=== PATIENT | male | born 1965 | race Caucasian/White ===

== ENCOUNTER 2018-02-24 11:40 | Observation (INO) ==
--- NOTE | 2018-02-24 12:48 | ED ---
HPI General Chief complaint: Weakness Stated complaint: Medical Complaint Time Seen by Provider: 02/24/18 12:34 History of Present Illness HPI narrative: Patient comes in the emergency department playing of left-sided chest tightness ongoing intermittently over the past 2 weeks. Patient with associated numbness and tingling in his left upper extremity, shortness of breath, and generalized weakness with this. Patient denies anything making it better or worse. Patient got concerned when it became more constant today. Patient reports he has had some swelling of his feet has been going on intermittently for years but seem to be worse today. Denies anything making symptoms better or worse. Denies ever having a stress test. Denies any radiation of pain. Denies loss or change of bowel/bladder or fevers. Related Data Home Medications Medication Instructions Recorded Confirmed No Known Home Medications 02/24/18 02/24/18 Allergies Allergy/AdvReac Type Severity Reaction Status Date / Time No Known Allergies Allergy Mild Uncoded 10/23/07 22:37 Review of Systems Except as stated in HPI: all other systems reviewed are negative [facility] Social History Social History Substance History: No History of Abuse Second Hand Smoke Exposure: Yes Smoking Status: Current every day smoker Tobacco Type: Cigarettes Packs Per Day: 1 Cigarettes Per Day: 20.0 Years Smoked: 40 Pack-Years: 40.00 How Often Do You Have a Drink Containing Alcohol: 4 or more times a week (2-4 beers nightly) Hx Recent Travel: No Recent Travel in [facility] within the Last 8 Weeks: No Recent Out of Country Travel within the Last 8 Weeks: No Exam Narrative Exam Narrative: GENERAL: Well-developed, well nourished, in no acute distress, and non-ill appearing. SKIN: Focused skin assessment warm and dry. HEAD: Atraumatic. Normocephalic. EYES: Pupils equal and round. EOMI. No scleral icterus. No injection or drainage. ENT: No nasal bleeding or discharge. Mucous membranes pink and moist. NECK: Trachea midline. No JVD. Supple. No nuclear rigidity. CARDIOVASCULAR: Regular rate and rhythm. No murmur appreciated. RESPIRATORY: No accessory muscle use. No respiratory distress. Scant wheezing throughout. GASTROINTESTINAL: Abdomen soft, non-tender, nondistended, and no guarding. Hepatic and splenic margins not palpable. Normal bowel sounds x4. No pulsatile mass. MUSCULOSKELETAL: No obvious deformities. No clubbing. No cyanosis. Trace edema bilateral feet. Full range of motion. NEUROLOGICAL: Awake and alert. No obvious cranial nerve deficits. Motor grossly within normal limits. Normal speech. PSYCHIATRIC: Appropriate mood and affect; insight and judgment normal. Course Initial Documented Vital Signs Temperature 98.9 F 02/24/18 11:57 Pulse Rate 88 02/24/18 11:57 Respiratory Rate 17 02/24/18 11:57 Blood Pressure 159/94 H 02/24/18 11:57 Pulse Oximetry 97 02/24/18 11:57 Last Documented Vital Signs Temperature 98.3 F 02/24/18 20:00 Pulse Rate 71 02/24/18 20:00 Respiratory Rate 18 02/24/18 20:00 Blood Pressure 125/74 02/24/18 20:00 Pulse Oximetry 97 02/24/18 20:00 Medical Decision Making VASILE Attestation VASILE supervised visit: Yes Attestation: I, Dr. Lr, have reviewed the advance practice practitioner's documentation and am in agreement, met with the patient face to face, made the diagnosis, and the medical decision making was done by me. *My assessment and Findings: Chest pain, concerning for acute coronary syndrome in addition to pancreatitis. Patient is able to tolerate p.o. Thus he has been placed in the chest pain observation unit for serial troponins and likely stress test. MDM Narrative Medical decision making narrative: Patient was seen and examined. Initial laboratory radiological studies were ordered. IV was established patient placed on continuous cardiac monitoring. Patient was given 162 mg of aspirin and Nitropaste was placed. Patient was given a DuoNeb secondary to wheezing noted on exam. Upon review of his laboratory studies. CT scan was ordered showed a normal pancreas. I suspect patient's elevated lipase secondary to alcohol use. Patient reports symptoms improved status post Nitropaste, aspirin , and DuoNeb. Discussed all findings and plan of care with Dr. Lr, who is agreement plan of care and disposition. Discussed all findings and plan of care patient, who is agreeable for admission to the chest pain center for further treatment and evaluation. Patient remained stable throughout ED course. Differential Diagnosis Differential Diagnosis: Acute coronary syndrome, angina, metabolic source, pancreatitis, pneumonia, COPD exacerbation Lab Data Result diagrams: 02/24/18 13:10 02/24/18 13:10 Lab Results 02/24/18 02/24/18 02/24/18 Range/Units 13:10 13:10 13:10 WBC 8.3 (4.0-11.0) th/mm3 RBC 4.49 L (4.50-5.90) mil/mm3 Hgb 15.2 (13.0-17.0) gm/dL Hct 44.0 (39.0-51.0) % MCV 98.0 (80.0-100.0) fL MCH 33.8 (27.0-34.0) pg MCHC 34.5 (32.0-36.0) % RDW 14.3 (11.6-17.2) % Plt Count 177 (150-450) th/mm3 MPV 7.4 (7.0-11.0) fL Neut % (Auto) 82.8 H (16.0-70.0) % Lymph % (Auto) 10.1 (9.0-44.0) % [place] % (Auto) 6.2 (0.0-8.0) % Eos % (Auto) 0.2 (0.0-4.0) % Baso % (Auto) 0.7 (0.0-2.0) % Neut # (Auto) 6.9 (1.8-7.7) th/mm3 Lymph # (Auto) 0.8 L (1.0-4.8) th/mm3 [place] # (Auto) 0.5 (0.0-0.9) th/mm3 Eos # (Auto) 0.0 (0.0-0.4) th/mm3 Baso # (Auto) 0.1 (0.0-0.2) th/mm3 WBC Differential . Differential Comment Auto diff final PT Cancelled INR Cancelled APTT (24.3-30.1) sec Sodium 136 (136-145) meq/L Potassium 4.4 (3.5-5.1) meq/L Chloride 101 (98-107) meq/L Carbon Dioxide 26.4 (21.0-32.0) meq/L Anion Gap 9 (5-15) meq/L BUN 13 (7-18) mg/dL Creatinine 0.93 (0.60-1.30) mg/dL Estimated GFR 85 L (>89) mL/min Random Glucose 83 (74-106) mg/dL Calcium 9.3 (8.5-10.1) mg/dL Magnesium 2.3 (1.5-2.5) mg/dL Total Bilirubin 0.8 (0.2-1.0) mg/dL AST 31 (15-37) U/L ALT 30 (12-78) U/L Alkaline Phosphatase 59 (45-117) U/L Total Creatine Kinase 261 (39-308) U/L Troponin I Less than 0.02 L (0.02-0.05) ng/mL B-Natriuretic Peptide (0-100) pg/mL Total Protein 7.2 (6.4-8.2) g/dL Albumin 4.3 (3.4-5.0) g/dL Lipase (73-393) U/L 02/24/18 02/24/18 02/24/18 Range/Units 13:10 13:10 13:10 WBC (4.0-11.0) th/mm3 RBC (4.50-5.90) mil/mm3 Hgb (13.0-17.0) gm/dL Hct (39.0-51.0) % MCV (80.0-100.0) fL MCH (27.0-34.0) pg MCHC (32.0-36.0) % RDW (11.6-17.2) % Plt Count (150-450) th/mm3 MPV (7.0-11.0) fL Neut % (Auto) (16.0-70.0) % Lymph % (Auto) (9.0-44.0) % [place] % (Auto) (0.0-8.0) % Eos % (Auto) (0.0-4.0) % Baso % (Auto) (0.0-2.0) % Neut # (Auto) (1.8-7.7) th/mm3 Lymph # (Auto) (1.0-4.8) th/mm3 [place] # (Auto) (0.0-0.9) th/mm3 Eos # (Auto) (0.0-0.4) th/mm3 Baso # (Auto) (0.0-0.2) th/mm3 WBC Differential Differential Comment PT 10.7 INR 1.1 APTT 27.2 (24.3-30.1) sec Sodium (136-145) meq/L Potassium (3.5-5.1) meq/L Chloride (98-107) meq/L Carbon Dioxide (21.0-32.0) meq/L Anion Gap (5-15) meq/L BUN (7-18) mg/dL Creatinine (0.60-1.30) mg/dL Estimated GFR (>89) mL/min Random Glucose (74-106) mg/dL Calcium (8.5-10.1) mg/dL Magnesium (1.5-2.5) mg/dL Total Bilirubin (0.2-1.0) mg/dL AST (15-37) U/L ALT (12-78) U/L Alkaline Phosphatase (45-117) U/L Total Creatine Kinase (39-308) U/L Troponin I (0.02-0.05) ng/mL B-Natriuretic Peptide 16 (0-100) pg/mL Total Protein (6.4-8.2) g/dL Albumin (3.4-5.0) g/dL Lipase 714 H (73-393) U/L 02/24/18 Range/Units 17:00 WBC (4.0-11.0) th/mm3 RBC (4.50-5.90) mil/mm3 Hgb (13.0-17.0) gm/dL Hct (39.0-51.0) % MCV (80.0-100.0) fL MCH (27.0-34.0) pg MCHC (32.0-36.0) % RDW (11.6-17.2) % Plt Count (150-450) th/mm3 MPV (7.0-11.0) fL Neut % (Auto) (16.0-70.0) % Lymph % (Auto) (9.0-44.0) % [place] % (Auto) (0.0-8.0) % Eos % (Auto) (0.0-4.0) % Baso % (Auto) (0.0-2.0) % Neut # (Auto) (1.8-7.7) th/mm3 Lymph # (Auto) (1.0-4.8) th/mm3 [place] # (Auto) (0.0-0.9) th/mm3 Eos # (Auto) (0.0-0.4) th/mm3 Baso # (Auto) (0.0-0.2) th/mm3 WBC Differential Differential Comment PT INR APTT (24.3-30.1) sec Sodium (136-145) meq/L Potassium (3.5-5.1) meq/L Chloride (98-107) meq/L Carbon Dioxide (21.0-32.0) meq/L Anion Gap (5-15) meq/L BUN (7-18) mg/dL Creatinine (0.60-1.30) mg/dL Estimated GFR (>89) mL/min Random Glucose (74-106) mg/dL Calcium (8.5-10.1) mg/dL Magnesium (1.5-2.5) mg/dL Total Bilirubin (0.2-1.0) mg/dL AST (15-37) U/L ALT (12-78) U/L Alkaline Phosphatase (45-117) U/L Total Creatine Kinase 216 (39-308) U/L Troponin I Less than 0.02 L (0.02-0.05) ng/mL B-Natriuretic Peptide (0-100) pg/mL Total Protein (6.4-8.2) g/dL Albumin (3.4-5.0) g/dL Lipase (73-393) U/L Imaging Data Radiologist's impression: Chest X-Ray 02/24/18 12:42 CONCLUSION: No acute cardiopulmonary disease. Abdomen CT 02/24/18 14:15 CONCLUSION: 1. The visualized portions of bowel mesentery appear unremarkable. No oral contrast was given. 2. The gallbladder is unremarkable in appearance. 3. Mild hepatic steatosis. ECG Data Interpretation: EKG reviewed by Dr. Lr shows sinus rhythm with ventricular rate 76. No STEMI. Discharge Plan Discharge Disposition Patient Disposition: 30 Still Patient Discharge Condition Condition: Stable Discharge Details Diagnosis: Chest pain Physicians Team ED Provider: Alicia Lr ED Midlevel Provider: Alexis Mayorga Primary Care Provider: Primary Care Terry,Mariela Attending Provider: Livier Israel ED Status: Left Department Discharge Information Discharge Date/Time: 02/24/18 18:13
--- NOTE | 2018-02-24 13:38 | XR ---
EXAM DATE: 02/24/2018 1:31 PM EDT AGE/SEX: 52 years / Male INDICATIONS: . Chest pain. Shortness of breath. Bilateral lower extremity swelling. CLINICAL DATA: This is the patient's initial encounter. Patient reports that signs and symptoms have been present for 2 days and indicates a pain score of 8/10. MEDICAL/SURGICAL HISTORY: . Smoker. None. COMPARISON: No prior exams available for comparison. FINDINGS: PA and lateral views of the chest demonstrate the lungs to be symmetrically aerated without evidence of mass, infiltrate or effusion. The cardiomediastinal contours are unremarkable. Osseous structures are intact. CONCLUSION: No acute cardiopulmonary disease. Electronically signed by: Edy Lux MD 02/24/2018 1:37 PM EDT
[2018-02-24 13:41] LABS: Baso # (Auto) 0.1 th/mm3 (0.0-0.2); Baso % (Auto) 0.7 % (0.0-2.0); Eos % (Auto) 0.2 % (0.0-4.0); Hemoglobin 15.2 gm/dL (13.0-17.0); Lymph # (Auto) 0.8 th/mm3 (1.0-4.8); Lymph % (Auto) 10.1 % (9.0-44.0); Mean Corpuscular HGB Conc 34.5 % (32.0-36.0); Mean Corpuscular Hemoglobin 33.8 pg (27.0-34.0); Mean Platelet Volume 7.4 fL (7.0-11.0); Mono # (Auto) 0.5 th/mm3 (0.0-0.9); Mono % (Auto) 6.2 % (0.0-8.0); Neut # (Auto) 6.9 th/mm3 (1.8-7.7); Neut % (Auto) 82.8 % (16.0-70.0); Platelet Count 177 th/mm3 (150-450); Red Blood Count 4.49 mil/mm3 (4.50-5.90); Red Cell Distribution Width 14.3 % (11.6-17.2); White Blood Count 8.3 th/mm3 (4.0-11.0)
[2018-02-24 13:53] LABS: Activated Partial Thrombo Time 27.2 sec (24.3-30.1); INR 1.1 Ratio; Prothrombin Time 10.7 sec (9.8-11.6)
[2018-02-24 14:05] LABS: Alanine Aminotransferase 30 U/L (12-78); Albumin 4.3 g/dL (3.4-5.0); Anion Gap 9 meq/L (5-15); Aspartate Aminotransferase 31 U/L (15-37); Blood Urea Nitrogen 13 mg/dL (7-18); Calcium 9.3 mg/dL (8.5-10.1); Carbon Dioxide 26.4 meq/L (21.0-32.0); Chloride 101 meq/L (98-107); Glomerular Filtration Rate 85 mL/min (>89); Glucose,Random 83 mg/dL (74-106); Magnesium 2.3 mg/dL (1.5-2.5); Potassium 4.4 meq/L (3.5-5.1); Sodium 136 meq/L (136-145)
[2018-02-24 14:09] LABS: Alkaline Phosphatase 59 U/L (45-117); Creatine Kinase 261 U/L (39-308); Total Protein 7.2 g/dL (6.4-8.2)
--- NOTE | 2018-02-24 15:38 | CT ---
EXAM DATE: 02/24/2018 3:28 PM EDT AGE/SEX: 52 years / Male INDICATIONS: Epigastric pain and vomiting today. CLINICAL DATA: This is the patient's initial encounter. Patient reports that signs and symptoms have been present for 1 day and indicates a pain score of 7/10. MEDICAL/SURGICAL HISTORY: None. None. ORAL CONTRAST: No oral contrast ingested. RADIATION DOSE: 4.44 CTDI (mGy) COMPARISON: No prior exams available for comparison. TECHNIQUE: Multiple contiguous axial images were obtained through the abdomen following bolus infusi on of 87 ml Omnipaque 350 (iohexol) nonionic water-soluble contrast as a single exam dose. No oral contrast ingested. Using automated exposure control and adjustment of the mA and/or kV according to patient size, radiation dose was kept as low as reasonably achievable to obtain optimal diagnostic qu ality images. DICOM format image data is available electronically for review and comparison. FINDINGS: Lower Lungs: The visualized lower lungs are clear. Liver: The liver has a homogeneous density without space-occupying lesion. There is no dilation of th e biliary tree. There is mild hepatic steatosis. The gallbladder is unremarkable in appearance. Spleen: Homogeneous density without enlargement. Pancreas: Unremarkable without mass or calcification. Kidneys: Normal in size and shape. No evidence of mass or hydronephrosis. Adrenal Glands: Unremarkable. Aorta/Retroperitoneum: The aorta is grossly unremarkable without aneurysmal dilation. No paraaortic or retrocrural adenopathy. Bowel/Mesentery: No oral contrast was given limiting the sensitivity of the exam. The bowel loops ar e grossly unremarkable. Abdominal Wall: Intact. Bony Structures: Unremarkable. CONCLUSION: 1. The visualized portions of bowel mesentery appear unremarkable. No oral contrast was given. 2. The gallbladder is unremarkable in appearance. 3. Mild hepatic steatosis. Electronically signed by: Edy Lux MD 02/24/2018 3:37 PM EDT
[2018-02-24] MEDS ORDERED: Acetaminophen 500 MG Tablet PO PRN (16:35)
--- NOTE | 2018-02-24 17:08 | P.HPCA ---
History of Present Illness Primary Care Physician: No Primary Care Physician Chief Complaint: Chest pain History of Present Illness: 52 year old male without any known medical history presents to ER for further evaluation of chest pain. Onset last evening. Location substernal. Characterized as heaviness. No radiation of discomfort, reports associated left arm numbness. Associated nausea, vomiting, dyspnea, and diaphoresis. Duration constant. No precipitating or relieving factors. Reports after eating dinner last evening, immediately became nauseous and vomited most of evening hours. No diarrhea. No fever or sick contacts. Family members also ate same meal and did not become ill. Endorses increase in stress lately and became anxious last night over chest discomfort. Bilateral lower pedal edema since awakening this morning. Has not seen a primary doctor in many years. Current smoker. No known cardiac disease. Never had cardiac stress testing. Father [place] in mid 50s. Nausea and vomiting has resolved. - Diagnosis (1) Chest pain, atypical (2) Tobacco abuse Review of Systems All other systems reviewed negative except as stated in HPI PMFSH - History History Provided By: Patient - Tobacco History Second Hand Smoke Exposure: Yes Tobacco Use In Past 30 Days: Yes Smoking Status: Current every day smoker Tobacco Type: Cigarettes Packs Per Day: 1 Years Smoked: 40 - Alcohol History How Often Do You Have a Drink Containing Alcohol: 4 or more times a week (2-4 beers nightly) - Substance Use History Substance History: No History of Abuse - Travel History History of Recent Travel: No Recent Travel in the [place] Within the Last 8 Weeks: No Recent Travel Out of the Country Within the Last 8 Weeks: No - Immunization History Tetanus Immunization: <5 Years Medications and Allergies Active Medications: Active Medications Acetaminophen (Tylenol) 500 mg PO Q4H PRN PRN Reason: HEADACHE Aspirin (Aspirin) 325 mg PO DAILY MELISSA Nitroglycerin (Nitrostat Sl) 0.4 mg SL Q5M PRN PRN Reason: CHEST PAIN Ondansetron HCl (Zofran Inj) 4 mg IV.PUSH Q6H PRN PRN Reason: NAUSEA Sodium Chloride (Ns Flush) 2 ml IV.FLUSH BID MELISSA Sodium Chloride (Ns Flush) 2 ml IV.FLUSH PRN PRN PRN Reason: FLUSH AFTER USING IV ACCESS Allergies Allergy/AdvReac Type Severity Reaction Status Date / Time No Known Allergies Allergy Mild Uncoded 10/23/07 22:37 Home Medications Medication Instructions Recorded Confirmed Type No Known Home Medications 02/24/18 02/24/18 History Exam Vital signs: Vital Signs 02/24/18 11:57 02/24/18 13:05 02/24/18 13:47 Temperature 98.9 F Pulse Rate 88 75 90 Respiratory Rate 17 17 17 Blood Pressure 159/94 H 145/88 H Pulse Oximetry 97 98 02/24/18 16:05 02/24/18 16:59 Temperature Pulse Rate 75 72 Respiratory Rate 17 18 Blood Pressure 136/67 136/67 Pulse Oximetry 100 96 Intake & Output 02/23/18 02/24/18 02/24/18 18:59 06:59 18:59 Weight 72.575 kg Narrative: male no acute distress - Constitutional no acute distress - Routine HEENT Exam Head: Present: normocephalic Eye: Present: EOMI, PERRL, normal accommodation ENT: Present: mucous membranes moist - Routine Neck Exam Present: supple, full ROM. Absent: JVD, carotid bruit - Routine Chest/Breast/Axilla Exam Chest wall: Absent: tenderness - Routine Respiratory Exam Present: prolonged expiratory phase, wheezes, diminished air movement. Absent: accessory muscle use, crackles - Routine Cardiovascular Exam Present: RRR. Absent: murmur, gallop, rubs - Routine Abdominal Exam Present: soft, normoactive bowel sounds. Absent: tenderness, distended, rebound , guarding, firm, mass - Routine Extremities Exam Present: edema, full ROM, pulses intact, normal capillary refill. Absent: calf tenderness, tenderness Comments: +2 bilateral pedal edema - Routine Skin Exam Present: intact, dry, warm, normal turgor - Routine Neurological Exam Present: alert, oriented X3, CN II-XII intact, moving all extremities, normal speech - Routine Psychiatric Exam Present: normal affect, normal thought process, good insight, good judgment, anxious. Absent: depressed, agitated Results 02/24/18 13:10 02/24/18 13:10 Cardiac Enzymes 02/24/18 02/24/18 Range/Units 13:10 13:10 AST 31 (15-37) U/L Troponin I Less than 0.02 L (0.02-0.05) ng/mL B-Natriuretic Peptide 16 (0-100) pg/mL Coagulation 02/24/18 02/24/1802/24/18 Range/Units 13:10 13:10 13:10 PT Cancelled 10.7 APTT 27.2 (24.3-30.1) sec B-Natriuretic Peptide 16 (0-100) pg/mL CBC 02/24/18 Range/Units 13:10 WBC 8.3 (4.0-11.0) th/mm3 RBC 4.49 L (4.50-5.90) mil/mm3 Hgb 15.2 (13.0-17.0) gm/dL Hct 44.0 (39.0-51.0) % Plt Count 177 (150-450) th/mm3 Neut # (Auto) 6.9 (1.8-7.7) th/mm3 Lymph # (Auto) 0.8 L (1.0-4.8) th/mm3 [place] # (Auto) 0.5 (0.0-0.9) th/mm3 Eos # (Auto) 0.0 (0.0-0.4) th/mm3 Baso # (Auto) 0.1 (0.0-0.2) th/mm3 Comprehensive Metabolic Panel 02/24/18 Range/Units 13:10 Sodium 136 (136-145) meq/L Potassium 4.4 (3.5-5.1) meq/L Chloride 101 (98-107) meq/L Carbon Dioxide 26.4 (21.0-32.0) meq/L BUN 13 (7-18) mg/dL Creatinine 0.93 (0.60-1.30) mg/dL Calcium 9.3 (8.5-10.1) mg/dL AST 31 (15-37) U/L ALT 30 (12-78) U/L Alkaline Phosphatase 59 (45-117) U/L Total Protein 7.2 (6.4-8.2) g/dL Albumin 4.3 (3.4-5.0) g/dL Intake and Output 02/24/18 02/24/18 02/24/18 06:59 14:59 22:59 Other: Weight 72.575 kg Patient Weight 02/25/18 06:59 Weight 72.575 kg EKG interpretations - EKG EKG results cardiology: WNL, sinus rhythm, normal axis, normal QRS, normal ST/T Caprini VTE Risk Assessment Caprini VTE Risk Assessment: No/Low Risk (score <= 1) Caprini Risk Assessment Model: Point Value = 1 Point Value = 2 Point Value = 3 Point Value = 5 Age 41-60 Minor surgery BMI > 25 kg/m2 Swollen legs Varicose veins or History of unexplained or recurrent spontaneous Oral contraceptives or hormone replacement Sepsis (< 1 month) Serious lung disease, including pneumonia (< 1 month) Abnormal pulmonary function Acute myocardial infarction Congestive heart failure (< 1 month) History of inflammatory bowel disease Medical patient at bed rest Age 61-74 Arthroscopic surgery Major open surgery (> 45 min) Laparoscopic surgery (> 45 min) Malignancy Confined to bed (> 72 hours) Immobilizing plaster cast Central venous access Age >= 75 History of VTE Family history of VTE Factor V Leiden Prothrombin [id number] Lupus anticoagulant Anticardiolipin antibodies Elevated serum homocysteine Heparin-induced thrombocytopenia Other congenital or acquired thrombophilia Stroke (< 1 month) Elective arthroplasty Hip, pelvis, or leg fracture Acute spinal cord injury (< 1 month) Prophylaxis Regimen: Total Risk Factor Score Risk Level Prophylaxis Regimen 0-1 Low Early ambulation 2 Moderate Order ONE of the following: *Sequential Compression Device (SCD) *Heparin 5000 units SQ BID 3-4 Higher Order ONE of the following medications: *Heparin 5000 units SQ TID *Enoxaparin/Lovenox 40 mg SQ daily (WT < 150 kg, CrCl > 30 mL/min) *Enoxaparin/Lovenox 30 mg SQ daily (WT < 150 kg, CrCl > 10-29 mL/min) *Enoxaparin/Lovenox 30 mg SQ BID (WT < 150 kg, CrCl > 30 mL/min) AND/OR *Sequential Compression Device (SCD) 5 or more Highest Order ONE of the following medications: *Heparin 5000 units SQ TID (Preferred with Epidurals) *Enoxaparin/Lovenox 40 mg SQ daily (WT < 150 kg, CrCl > 30 mL/min) *Enoxaparin/Lovenox 30 mg SQ daily (WT < 150 kg, CrCl > 10-29 mL/min) *Enoxaparin/Lovenox 30 mg SQ BID (WT < 150 kg, CrCl > 30 mL/min) AND *Sequential Compression Device (SCD) Assessment and Plan - Assessment (1) Chest pain, atypical Code(s): R07.89 - Other chest pain Status: Acute Plan: Admitted to chest pain center. Ruled out with 2 sets of EKGs and cardiac enzymes. Seen and evaluated by Dr. Livier sIrael. Due to prolonged nature of chest discomfort, proceed with exercise cardiac testing this evening. If unremarkable, plans to discharge patient home this evening. Strongly encouraged to establish with a primary care provider for preventive care and medical management. 1900-patient states he cannot ambulate on treadmill due to intermittent calf pain. Requesting to stay overnight and complete cardiac testing without walking. Lexiscan in morning. (2) Tobacco abuse Code(s): Z72.0 - Tobacco use Status: Chronic Plan: Strongly encouraged and stressed importance of tobacco cessation. Instructed to quit smoking.
[2018-02-24 18:12] LABS: Creatine Kinase 216 U/L (39-308)
[2018-02-24 20:14] LABS: Creatine Kinase 212 U/L (39-308)
[2018-02-24] MEDS: ALPRAZolam 0.25 MG Tablet PO PRN (21:17)
[2018-02-25] MEDS: ALPRAZolam 0.25 MG Tablet PO PRN (07:29)
--- NOTE | 2018-02-25 08:16 | P.PNCA ---
Subjective Interval history: No further complaints overnight. Continues to experience substernal chest heaviness, constant throughout evening. Sleep intervals. Anxiety improved with prn Xanax. States he will be unable to ambulate on treadmill due to intermittent , nonexertional bilateral leg cramping. Physical Exam Vital signs: Vital Signs 02/24/18 11:57 02/24/18 13:05 02/24/18 13:47 Temperature 98.9 F Pulse Rate 88 75 90 Respiratory Rate 17 17 17 Blood Pressure 159/94 H 145/88 H Pulse Oximetry 97 98 02/24/18 16:05 02/24/18 16:59 02/24/18 20:00 Temperature 98.3 F Pulse Rate 75 72 71 Respiratory Rate 17 18 18 Blood Pressure 136/67 136/67 125/74 Pulse Oximetry 100 96 97 02/25/18 00:00 02/25/18 04:00 02/25/18 07:49 Temperature 98.2 F 98.3 F 98.8 F Pulse Rate 64 69 68 Respiratory Rate 16 16 16 Blood Pressure 124/71 123/74 128/74 Pulse Oximetry 97 98 96 Intake & Output 02/24/18 02/25/18 02/25/18 18:59 06:59 18:59 Output Total 800 / 800 Balance -800 / -800 Weight 72.575 kg 72.58 kg Output: Urine 800 / 800 Other: # Voids 2 Weight On Admission 72.575 kg - Constitutional no acute distress, cooperative - Routine HEENT Exam Head: Present: normocephalic, atraumatic - Routine Neck Exam Present: supple, full ROM - Routine Respiratory Exam Present: prolonged expiratory phase, wheezes, diminished air movement Comments: bilateral lower lung garcia expiratory wheeze - Routine Cardiovascular Exam Present: RRR. Absent: murmur, gallop, rubs - Routine Abdominal Exam Present: soft. Absent: tenderness - Routine Extremities Exam Present: edema, full ROM. Absent: tenderness Comments: +1 pedal edema - Routine Skin Exam Present: intact, warm Assessment and Plan - Assessment (1) Chest pain, atypical Code(s): R07.89 - Other chest pain Status: Acute Plan: Proceed with chemical cardiac testing this morning. If unremarkable, plans to discharge home with follow up with a PCP. Reinforced importance of establishing with a primary care provider and smoking cessation. (2) Tobacco abuse Code(s): Z72.0 - Tobacco use Status: Chronic Plan: Strongly encouraged and stressed importance of tobacco cessation. Instructed to quit smoking. (3) Anxiety Code(s): F41.9 - Anxiety disorder, unspecified Status: Chronic Plan: Xanax 0.5 mg PRN. Smoking cessation, encouraged eating a proper diet, getting plenty of rest, and increasing daily activity for stress relief. Establish with a PCP.
[2018-02-25] MEDS ORDERED: Aspirin 325 MG Tablet PO SCH (09:00)
--- NOTE | 2018-02-25 10:06 | ECG ---
Date Performed: 02/24/2018 Time Performed: 17:13:19 PTAGE: 52 years EKG: Sinus rhythm LEFT ANTERIOR FASCICULAR BLOCK NONSPECIFIC ST ELEVATION ABNORMAL ECG Since PREVIOUS TRACING , no significant change noted PREVIOUS TRACIN02/24/2018 12.59 DOCTOR: Livier Israel Interpretating Date/Time 02/25/2018 10:05:13
--- NOTE | 2018-02-25 10:06 | ECG ---
Date Performed: 02/24/2018 Time Performed: 12:59:10 PTAGE: 52 years EKG: Sinus rhythm WITH SINUS ARRHYTHMIA MARKED LEFT AXIS DEVIATION MODERATE INTRAVENTRICULAR CONDUCTION DELAY ABNORMAL ECG NO PREVIOUS TRACING DOCTOR: Livier Israel Interpretating Date/Time 02/25/2018 10:04:56
[2018-02-25] MEDS ORDERED: Regadenoson Inj 0.4 MG/5 ML Syringe IV.PUSH ONE (10:37)
--- NOTE | 2018-02-25 11:58 | NM ---
EXAM DATE: 02/25/2018 11:50 AM EDT AGE/SEX: 52 years / Male INDICATIONS:Angina. . Substernal chest pain. CLINICAL DATA: This is the patient's initial encounter. Patient reports that signs and symptoms have been present for 2 days and indicates a pain score of 2/10. MEDICAL/SURGICAL HISTORY: None. None. COMPARISON: No prior exams available for comparison. DOSE: 8.5 mCi Tc 99m Myoview at rest 26.1 mCi [id number] at stress 0.4 mg Lexiscan STRESS SYMPTOMS: None. EJECTION FRACTION: 60 % TECHNIQUE: The patient underwent pharmacologic stress with infusion of prescribed dose. Continuous ECG tracing was monitored during stress. Gated SPECT imaging was performed after stress and conventi onal SPECT imaging was performed at rest. The examination was performed on a SPECT/CT scanner, both attenuation and non-corrected datasets were reviewed. FINDINGS: Distribution: The maximum perfused segment at stress is in the anterior wall. Perfusion Study: The pattern of perfusion at stress is within normal limits. Gated Study: There are intact wall motion and wall thickening without hypokinetic or dyskinetic segm ents. The ejection fraction is calculated at 60%. RISK CATEGORY: Low (<1% Annual Motality Rate) CONCLUSION: 1. Unremarkable myocardial perfusion examination. Electronically signed by: Maninder Quinn MD 02/25/2018 11:57 AM EDT
--- NOTE | 2018-02-25 16:09 | TR ---
Date Performed: 02/25/2018 Time Performed: 10:24:13 DOCTOR: Livier Israel DRUG LIST: CLINICAL HISTORY: REASON FOR TEST: REASON FOR ENDING: OBSERVATION: CONCLUSION: Lexiscan stress test was performed under standard four minute protocol. Radionuclid e was injected one minute prior to ending the test. No electrocardiographic abormalities were present to suggest ischemia. Nuclear imaging and interpretation are pending. COMMENTS: no [email or web address]
== END 2018-02-25 01:15 | disposition home or self-care (01) ==
LOC: NEDA 11:40 → NEPC 11:40 → NEPFCDU 11:40
PROVIDERS: ADMIT Internal Medicine Interventional Cardiology; ATTEND Internal Medicine Interventional Cardiology